=== PATIENT | female | born 1960 | race Caucasian/White ===

== ENCOUNTER 2019-09-19 09:49 | Day surgery (SDC) | payer OTHER ==
[2019-09-14 14:09] VITALS: BMI 34.3
[2019-09-19] MEDS: TROPICAMIDE 1% OPHTH SOLN 15 ML BOTTLE OS SCH ×5 (10:15→10:35)
[2019-09-19] MEDS: KETOROLAC TROMETHAMINE 0.5% EYE DROP 1 DROP DROPS OS SCH ×5 (10:15→10:35)
[2019-09-19] MEDS: PHENYLEPHRINE 2.5% OPHTH SOLN 15 ML BOTTLE OS SCH ×5 (10:15→10:35)
[2019-09-19] MEDS: CYCLOPENTOLATE HCL 1% OPHTH SOLN 2 ML BOTTLE OS SCH ×5 (10:15→10:35)
[2019-09-19] MEDS: OFLOXACIN 0.3% OPHTHALMIC SOLUTION 5 ML BOTTLE OS SCH ×5 (10:15→10:35)
[2019-09-19] MEDS ORDERED: ACETAMINOPHEN 325 MG TABLET (FP) PO PRN (10:17)
[2019-09-19] MEDS ORDERED: BACITRACIN/POLYMYXIN OPH OINT 3.5 GM TUBE ONE (11:58)
[2019-09-19] MEDS ORDERED: POVIDONE-IODINE 5% OPHTHALMIC PREP 30 ML SOLUTION ONE (11:58)
[2019-09-19] MEDS ORDERED: EPI-SHUGARCAINE (EPINEPHRINE 0.025% & LIDOCAINE-PF 0.75%) 4ML ONE (11:58)
[2019-09-19] MEDS ORDERED: TETRACAINE 0.5% OPHTH SOLN 2 ML BOTTLE ONE (11:58)
[2019-09-19] MEDS ORDERED: BETAXOLOL HCL 0.25% OPHTHALMIC 10 ML DROPSBTL ONE (11:58)
[2019-09-19] MEDS ORDERED: NEO/POLYMYX B SULF/DEXAMETH OPHTHALMIC 5ML BOTTLE ONE (11:59)
[2019-09-19] MEDS ORDERED: MIDAZOLAM HCL 2 MG/2 ML SINGLE DOSE VIAL ONE (12:06)
[2019-09-19] MEDS ORDERED: TRYPAN BLUE 0.5 ML DISP.SYRIN ONE (12:23)
[2019-09-19 14:21] VITALS: BP 150/82; PULSE 70; TEMP 98.6
--- NOTE | 2019-09-19 19:00 | OP ---
DATE OF OPERATION: 09/19/2019 PREOPERATIVE DIAGNOSIS: Cataract, left eye. POSTOPERATIVE DIAGNOSIS: Cataract, left eye. PROCEDURE: Cataract extraction via phacoemulsification with insertion of posterior chamber lens implant, left eye. SURGEON: Fabiano Alex MD. IRRIGATOR HEAD: Bruna Granger. ANESTHESIA: Topical with sedation. ESTIMATED BLOOD LOSS: Less than 1 mL. COMPLICATIONS: None. SPECIMENS: None. PROCEDURE: The patient is identified in the holding area. After all risks, benefits, and alternatives were explained to the patient, informed consent was obtained. The left eye was marked with a marking pen. The patient then entered the operating room on an eye stretcher. After formal timeout was performed, topical tetracaine eyedrops were instilled onto the left eye. The left eye was then prepped and draped in the usual sterile fashion. Eyelid speculum was placed beneath the eyelids of the left eye. Of note, it was noted that there was a very dense noted that was obscuring the red reflex, therefore Trypan blue was ordered. Then infratemporal paracentesis incision was created by a 15-degree blade. Topical preservative free epinephrine and preservative free lidocaine was then injected into the anterior chamber. An air bubble was injected into the anterior chamber. Trypan blue was then injected into the anterior chamber underneath the air bubble, staining anterior capsule. Balanced salt solution was immediately used to irrigate the excess Trypan blue and air bubble out of the anterior chamber. Then viscoelastic was injected into the anterior chamber. A 2.4-mm keratome blade was then used to make a supratemporal incision. A 360-degree continuous curvilinear capsulorrhexis was then created using bent cystotome and Utrata forceps. Hydrodissection was performed using balanced saline solution on the cannula. Phacoemulsification was then introduced, disassembled and removed the nucleus in its entirety. Irrigation/aspiration was then used to remove any remaining cortical material from the eye. The capsular bag was then reformed using viscoelastic. An Sanju model [id number] with a power of 21.5 diopters, serial number [id number] was inspected and found to be defect free and injected into the capsular bag. Irrigation/aspiration was then used to remove any remaining viscoelastic from the eye. The anterior ocular lens was rotated and confirmed to be completely centered. All wounds were hydrated with balanced salt solution and noted to be watertight. There was red reflex present. The anterior chamber perfectly centered in the capsular bag and the eye had adequate pressure. Then topical antibiotic eyedrops and antibiotic ointment was then administered to the left eye. The eyelid speculum was then removed from the left eye. The left eye was then shielded. The patient tolerated the procedure well and left the operating room in stable condition to follow up in the eye clinic the next morning at 10 o'clock. FABIANO ALEX M.D. [id number]
== END 2019-09-19 13:40 | disposition home or self-care (01) ==
LOC: FASU 09:49
PROVIDERS: ATTEND Ophthalmology
PROC: 08RK3JZ Replacement of Left Lens with Synthetic Substitute, Percutaneous Approach (ICD-10-PCS; principal; 2019-09-19 12:32)
DX: H26.9 Unspecified cataract (principal)

== ENCOUNTER 2019-10-03 11:04 | Day surgery (SDC) | payer OTHER ==
[2019-10-03] MEDS ORDERED: KETOROLAC TROMETHAMINE 0.5% EYE DROP 1 DROP DROPS ONE (11:15)
[2019-10-03] MEDS ORDERED: CYCLOPENTOLATE HCL 1% OPHTH SOLN 2 ML BOTTLE ONE (11:15)
[2019-10-03] MEDS ORDERED: OFLOXACIN 0.3% OPHTHALMIC SOLUTION 5 ML BOTTLE ONE (11:15)
[2019-10-03] MEDS ORDERED: PHENYLEPHRINE 2.5% OPHTH SOLN 15 ML BOTTLE ONE (11:15)
[2019-10-03] MEDS ORDERED: TROPICAMIDE 1% OPHTH SOLN 15 ML BOTTLE ONE (11:15)
[2019-10-03] MEDS: CYCLOPENTOLATE HCL 1% OPHTH SOLN 2 ML BOTTLE OD SCH ×5 (11:30→11:50)
[2019-10-03] MEDS: PHENYLEPHRINE 2.5% OPHTH SOLN 15 ML BOTTLE OD SCH ×5 (11:30→11:50)
[2019-10-03] MEDS: OFLOXACIN 0.3% OPHTHALMIC SOLUTION 5 ML BOTTLE OD SCH ×5 (11:30→11:50)
[2019-10-03] MEDS: TROPICAMIDE 1% OPHTH SOLN 15 ML BOTTLE OD SCH ×5 (11:30→11:50)
[2019-10-03] MEDS: KETOROLAC TROMETHAMINE 0.5% EYE DROP 1 DROP DROPS OD SCH ×5 (11:30→11:50)
[2019-10-03 11:32] VITALS: BMI 34.3
[2019-10-03] MEDS ORDERED: ACETAMINOPHEN 325 MG TABLET (FP) PO PRN (12:28)
[2019-10-03] MEDS ORDERED: NEO/POLYMYX B SULF/DEXAMETH OPHTHALMIC 5ML BOTTLE ONE (12:42)
[2019-10-03] MEDS ORDERED: TETRACAINE 0.5% OPHTH SOLN 2 ML BOTTLE ONE ×2 (12:42→12:52)
[2019-10-03] MEDS ORDERED: EPI-SHUGARCAINE (EPINEPHRINE 0.025% & LIDOCAINE-PF 0.75%) 4ML ONE (12:42)
[2019-10-03] MEDS ORDERED: BETAXOLOL HCL 0.25% OPHTHALMIC 10 ML DROPSBTL ONE (12:42)
[2019-10-03] MEDS ORDERED: BACITRACIN/POLYMYXIN OPH OINT 3.5 GM TUBE ONE (12:42)
[2019-10-03] MEDS ORDERED: MIDAZOLAM HCL 2 MG/2 ML SINGLE DOSE VIAL ONE (12:55)
[2019-10-03 13:42] VITALS: TEMP 98.5
[2019-10-03 14:08] VITALS: BP 136/86; PULSE 78
--- NOTE | 2019-10-04 19:37 | OP ---
DATE OF OPERATION: 10/03/2019 PREOPERATIVE DIAGNOSIS: Cataract, right eye. POSTOPERATIVE DIAGNOSIS: Cataract, right eye. PROCEDURE: Cataract extraction via phacoemulsification with insertion of posterior chamber lens implant, right eye. SURGEON: Fabiano Alex MD. GRATING MACHINE OPERATOR: Dari Collier MD, and Fabiano Alex MD. ANESTHESIA: Topical with sedation. ESTIMATED BLOOD LOSS: Less than 1 mL. COMPLICATIONS: None. SPECIMENS: None. PROCEDURE: The patient is identified in the holding area. After all risks, benefits, and alternatives were explained to the patient, informed consent was obtained. The right eye was marked with a marking pen. The patient then entered the operating room on an eye stretcher. After formal timeout was performed, topical tetracaine eyedrops were instilled onto the right eye. The right eye was then prepped and draped in the usual sterile fashion. Eyelid speculum was placed beneath the eyelids of the right eye. A supratemporal paracentesis incision was created using 15-degree blade. Then preservative-free epinephrine and preservative-free lidocaine was then injected into the anterior chamber. Viscoelastic was injected into the anterior chamber, and a 2.4-mm keratome blade was then used to make an infratemporal incision. A 360-degree continuous curvilinear capsulorrhexis was then created using bent cystotome and Utrata forceps. Hydrodissection was performed using balanced saline solution on the cannula. Phacoemulsification was introduced, disassembled and removed the nucleus in its entirety. Irrigation/aspiration was then used to remove any remaining cortical material from the eye. The capsular bag was reformed using viscoelastic. An Sanju model [id number] with a power of 20.5 diopters, serial number [id number] was inspected and found to be defect free and injected into the capsular bag. Irrigation/aspiration was then used to remove any remaining viscoelastic from the eye. The anterior chamber was then reformed using BSS. All wounds were hydrated with balanced saline solution and noted to be watertight. There was a red reflex present. The anterior chamber was deep, and the eye had an adequate pressure. The lens was perfectly centered in the capsular bag. Then topical antibiotic eyedrops and antibiotic ointment was then administered to the right eye. The eyelid speculum was then removed from the right eye. The right eye was shielded. The patient tolerated the procedure well and right the operating room in stable condition to follow up in the eye clinic the next morning at 10 o'clock. FABIANO ALEX M.D. [id number]
== END 2019-10-03 14:00 | disposition home or self-care (01) ==
LOC: FASU 11:04
PROVIDERS: ATTEND Ophthalmology
PROC: 08RJ3JZ Replacement of Right Lens with Synthetic Substitute, Percutaneous Approach (ICD-10-PCS; principal; 2019-10-03 13:05)
DX: H26.9 Unspecified cataract (principal)